=== PATIENT | female | born 1940 | race Caucasian/White ===

== ENCOUNTER 2019-01-07 09:59 | Day surgery (SDC) | payer MEDICARE, BC ==
--- NOTE | 2019-01-03 17:09 | HP ---
PREOPERATIVE HISTORY AND PHYSICAL: DATE OF SURGERY/ADMISSION: 01/07/19 [facility] DATE OF OFFICE VISIT/ENCOUNTER: 01/03/19 ATTENDING SURGEON: Celina Demarco MD.* (DICTATED BY JASMYN HINKLE) PROCEDURE: Left wrist carpal tunnel release. HISTORY OF PRESENT ILLNESS: This is a 78-year-old female who complains of numbness and tingling in her left hand ongoing for over a year. She had a nerve conduction study done at [facility] and per her report, they show carpal tunnel syndrome. She has used a brace, which is somewhat helpful at night, but she still wakes up with pain and numbness in her left hand. Occasionally, the pain radiates up to her elbow. She denies any specific injury. Clinically, she has been diagnosed with carpal tunnel syndrome along with the results from the nerve conduction study. She has consented to proceed with surgical intervention at this time. PAST MEDICAL HISTORY: 1. Hypertension. 2. Hypercholesterolemia. 3. GERD. 4. Questionable rheumatoid arthritis. 5. Hypothyroidism. PAST SURGICAL HISTORY: 1. Cholecystectomy. 2. Appendectomy. 3. Right total knee arthroplasty. 4. Hysterectomy. 5. ORIF, right thumb. 6. ORIF, right clavicle. 7. Left rotator cuff repair. CURRENT MEDICATIONS: 1. Atenolol 25 mg daily. 2. CBD oil p.o. as directed. 3. Colesevelam HCl 625 mg 3 tabs twice a day. 4. Rabeprazole 20 mg daily. 5. Synthroid 88 mcg daily. 6. Torsemide 10 mg daily. ALLERGIES: ADHESIVE and PENICILLIN, reaction unknown. FAMILY MEDICAL HISTORY: Heart disease, hypertension, stroke. SOCIAL HISTORY: The patient is retired. She lives at home with her . She denies tobacco use and recreational drug use. She drinks alcohol on rare occasion. REVIEW OF SYSTEMS: Negative for general, cephalic, cardiovascular, respiratory , GI, , other musculoskeletal, integumentary, endocrine, neurologic, and hematologic symptoms. Infectious disease: Negative for MRSA, hepatitis C, HIV. PHYSICAL EXAMINATION GENERAL: Well-developed, well-nourished 78-year-old female, in no acute distress. VITAL SIGNS: Height 5 feet 4-1/2 inches, weight 220 pounds, pulse rate 70, blood pressure 140/78. HEENT: Normocephalic, atraumatic. Pupils are equal, round, and reactive to light and accommodation. Extraocular movements are intact. NECK: Supple. No palpable lymph nodes. Throat is clear. PULMONARY: Lungs are clear to auscultation bilaterally. No wheezes, rales or rhonchi. CARDIOVASCULAR : Regular rate and rhythm. S1, S2. No murmurs, rubs or gallop. No edema. ABDOMEN: Positive bowel sounds, soft, nontender. MUSCULOSKELETAL: On exam of her left upper extremity, there is mild wasting at the left thenar eminence when compared to the right. She has some abduction weakness on the left as well. She can make a fist and fully extend her fingers and wrist motion is normal. She has decreased sensation in her median nerve distribution to light touch. Negative Tinel's at the ulnar nerve at the elbow. Negative median nerve compression test. NEUROLOGIC: Alert and oriented x3. Cranial nerves II through XII are intact. SKIN: Intact. IMPRESSION: Left carpal tunnel syndrome. PLAN: The patient is scheduled to undergo a left wrist carpal tunnel release with Dr. Demarco on 01/07/19. She will return to the office 10 days postop for followup and suture removal. She will use [id number] medications for postoperative pain management. JASMYN HINKLE [id number]/[facility] #: [id number] MTDD
[~2019-01-07 09:59] MED LIST: Buffered Lidocaine 1% SYRIN* 1 ML/SYRINGE INTRADERM ONE; Dexamethasone TAB* 4 MG PO ONE; DiMENhydriNATE IV* 50 MG/ML VIAL IV PUSH PRN; Famotidine IV* 10 MG/ML 2 ML (20 mg) IV ONE; Lactated Ringers 1000 ML Bag* 1,000 ML IV SCH; Naloxone* 0.4 MG/ML 1 ML VIAL IV PRN; Ondansetron ODT TAB* 4 MG PO ONE; PROCHLORPERAZINE INJ 5 MG/ML 2 ML VIAL IV PRN; oxyCODONE/Acetamin 5/325 MG* TAB PO PRN
[2019-01-07] MEDS ORDERED: Lidocaine 1% INJ* 10 MG/ML 30 ML SDV ONE (10:09)
[2019-01-07] MEDS ORDERED: Midazolam* 1 MG/ML 2 ML VIAL (2 MG) ONE (11:18)
[2019-01-07] MEDS ORDERED: fentaNYL* 50 MCG/ML 2 ML VIAL (100 MCG VIAL) ONE (11:18)
[2019-01-07] MEDS ORDERED: Dexamethasone TAB* 4 MG ONE (11:24)
[2019-01-07] MEDS ORDERED: Famotidine IV* 10 MG/ML 2 ML (20 mg) ONE (11:24)
[2019-01-07] MEDS ORDERED: Ondansetron ODT TAB* 4 MG ONE (11:24)
[2019-01-07] MEDS ORDERED: Lidocaine 2% PF * 5 ML VIAL ONE (11:50)
[2019-01-07] MEDS ORDERED: Ketorolac INJ* 30 MG/ML 1 ML VIAL ONE (11:50)
[2019-01-07] MEDS ORDERED: Propofol* 10 MG/ML 20 ML BTL ONE (11:50)
[2019-01-07 12:26] VITALS: BP 135/59
--- NOTE | 2019-01-07 16:14 | OP ---
CC: Dr. Demarco OPERATIVE REPORT: DATE OF OPERATION: 01/07/19 DATE OF : 38 SURGEON: Dr. Demarco. WOOD ROOM HAND: JASMYN Ivan. ANESTHESIA: Local MAC. PRE-OP DIAGNOSIS: Left carpal tunnel syndrome. POST-OP DIAGNOSIS: Left carpal tunnel syndrome. OPERATIVE PROCEDURE: Left carpal tunnel release. ESTIMATED BLOOD LOSS: Zero. TOURNIQUET TIME: About 10 minutes. INDICATIONS: Stefany is an 78-year-old female with numbness and tingling in the median nerve distributi on of her left hand. She presents for left carpal tunnel release. DESCRIPTION OF PROCEDURE: The patient was brought to the operating room, was given a sedation anesth etic and a local infiltration of 10 cc of 1% plain lidocaine in the palm of her left hand. The skin of her left hand and forearm was prepped and draped in the usual sterile fashion. The hand and forea rm were exsanguinated and the tourniquet elevated to 250 mmHg. A longitudinal incision was made in t he palm in line with the ring finger. Dissected through the subcutaneous tissue down to the transver se carpal ligament. The ligament was divided sharply with a knife and then more proximally with the scissors. The nerve was dissected free from the surrounding tissue and there was an area of moderate compression at the mid portion of the ligament. The wound was irrigated and the skin edges were devika pproximated with 4-0 nylon suture. The wound was dressed with Xeroform, 4x4, Webril, and a Tolu wrap. The patient tolerated the procedure well, was brought to the recovery room in good condition. [id number]/[facility] #: [id number]
== END 2019-01-07 12:41 | disposition home or self-care (01) ==
LOC: OREAST 09:59
PROVIDERS: ATTEND Orthopaedic Surgery
DX: G56.02 Carpal tunnel syndrome, left upper limb (principal); I10 Essential (primary) hypertension; E78.00 Pure hypercholesterolemia, unspecified; K21.9 Gastro-esophageal reflux disease without esophagitis; E03.9 Hypothyroidism, unspecified
CPT/HCPCS: A9270-GY; J1885; J2250; J2704; J3010; J8540